=== PATIENT | male | born 1970 | race Caucasian/White ===

== ENCOUNTER 2019-12-07 08:10 | Day surgery (SDC) | payer OTHER, MEDICARE ==
[~2019-12-07] VITALS: Ht 177.8 cm; Wt 96.0 kg
[~2019-12-07 08:10] MED LIST: AMLO5 PO; ASPI325 PO; Aspir 8181 MG PO; CLOP75 PO; EZET10 PO; ISOD40ER PO; ISOMON30 PO; Isosorbide Mono30 MG PO; Lisinopril2.5 MG; METO25ER PO; NITR.4SL SL; Percocet 5-3251 EACH PO; ROSU5 PO; TRAM50 PO; Zithromax250 MG PO
[2019-12-07] MEDS ORDERED: METF500 PO (08:45)
[2019-12-07] MEDS ORDERED: REPATHA SY140 MG/1 M (08:46)
--- NOTE | 2019-12-07 12:55 | NUR ---
2 CC AIR REMOVED FROM LEFT WRIST TR BAND, PT C/O DISCOMFORT FROM PRESSURE. ARM BOARD REMAINS ON FOR SUPPORT. PT TOLERATING PO FOOD/FLUIDS WITH NO DIFFICULTIES. WILL CONTINUE TO MONITOR. VSS. AT BEDSIDE.
--- NOTE | 2019-12-07 13:45 | NUR ---
TR BAND DEFLATED, REMAINS ON, ARM BOARD ON FOR SUPPORT. SITE APPEARS SOFT NON TENDER WITH NO ACTIVE BLEEDING OR OOZING NOTED. PT C/O LEFT WRIST/FOREARM BEING "SORE" OFFERED REPOSITIONING FOR COMFORT. VSS. CALL LIGHT IN REACH. REMAINS AT BEDSIDE.
--- NOTE | 2019-12-07 15:06 | NUR ---
PT DRESSED AND AMB TO BTR WELL, TR BAND REMOVED, DRESSING/SPLINT PLACED L WRIST, IV DC'D INTACT, PT AMB OUT WITH DRIVING PT HOME
== END 2019-12-07 15:00 | disposition home or self-care (01) ==
LOC: MHTC 08:10
PROC: B2181ZZ Fluoroscopy of Left Internal Mammary Bypass Graft using Low Osmolar Contrast (ICD-10-PCS; principal; 2019-12-07)
PROC: 4A023N7 Measurement of Cardiac Sampling and Pressure, Left Heart, Percutaneous Approach (ICD-10-PCS; principal; 2019-12-07)
PROC: B2111ZZ Fluoroscopy of Multiple Coronary Arteries using Low Osmolar Contrast (ICD-10-PCS; principal; 2019-12-07)
DX: R07.89 Other chest pain (principal); R94.39 Abnormal result of other cardiovascular function study; I25.10 Atherosclerotic heart disease of native coronary artery without angina pectoris; I25.2 Old myocardial infarction; I10 Essential (primary) hypertension; E78.5 Hyperlipidemia, unspecified; Z95.1 Presence of aortocoronary bypass graft; Z79.82 Long term (current) use of aspirin; Z79.899 Other long term (current) drug therapy; Z79.02 Long term (current) use of antithrombotics/antiplatelets
CPT/HCPCS: 93459; 99152; 99153; C1769; C1894; J1644; J2250; J3010; J7030; Q9967

== ENCOUNTER 2020-03-31 06:34 | Emergency (ER) | payer OTHER, MEDICARE ==
[~2020-03-31] VITALS: Ht 180.3 cm; Wt 95.2 kg
[~2020-03-31 06:34] MED LIST changes: +METF500 PO; +REPATHA SY140 MG/1 M
[2020-03-31] MEDS ORDERED: MECL25 PO (10:17)
[2020-03-31] MEDS ORDERED: ONDA4ODT MM (10:17)
[2020-03-31 11:52] LABS: Alanine Aminotransfer (ALT/SGP 42 U/L (12-78); Albumin, Blood 3.6 g/dL (3.4-5.0); Albumin/Globulin Ratio 1.1 (0.8-1.8); Alk Phos 51 U/L (50-136); Anion Gap 5 mmol/L (6-16); Aspartate Aminotrans (AST/SGOT 20 U/L (12-37); Bilirubin, Total 0.3 mg/dL (0.1-1.0); Blood Urea Nitrogen 12 mg/dL (8-24); Bun/Creatinine Ratio 10.2 (12.0-20.0); CO2, Blood 25 mmol/L (21-32); Calcium, Blood 8.3 mg/dL (8.5-10.1); Chloride, Blood 113 mmol/L (98-108); Creatinine, Blood 1.18 mg/dL (0.60-1.20); Globulin, Blood 3.2 g/dL (2.2-4.0); Glomerular Filtration Rate >60 (60-); Glucose, Blood 97 mg/dL (70-99); Sodium, Blood 143 mmol/L (136-145); Total Protein, Blood 6.8 g/dL (6.4-8.2); Troponin I <0.015 ng/mL (0.000-0.040)
[2020-03-31 13:45] LABS: BASOPHILS ABSOLUTE AUTO 0.05 K/mm3 (0.00-0.23); BASOPHILS PERCENT AUTO 1 % (0-2); EOSINOPHILS ABSOLUTE AUTO 0.21 K/mm3 (0.00-0.68); EOSINOPHILS PERCENT AUTO 2 % (0-6); Hematocrit 49.1 % (37.0-53.0); Hemoglobin 16.7 g/dL (13.5-17.5); IMMATURE GRAN ABSOLUTE AUTO 0.04 K/mm3 (0.00-0.10); IMMATURE GRAN PERCENT AUTO 0 % (0-1); LYMPHOCYTES ABSOLUTE AUTO 2.58 K/mm3 (0.84-5.20); LYMPHOCYTES PERCENT AUTO 27 % (21-46); MONOCYTES ABSOLUTE AUTO 1.05 K/mm3 (0.16-1.47); MONOCYTES PERCENT AUTO 11 % (4-13); Mean Corpuscular HGB 31.4 pg (26.0-34.0); Mean Corpuscular Volume 92 fL (80-100); Mean Platelet Volume 9.3 fL (9.1-12.4); NEUTROPHILS ABSOLUTE AUTO 5.77 K/mm3 (1.96-9.15); NEUTROPHILS PERCENT AUTO 60 % (41-73); Platelet Count 259 K/mm3 (150-400); RDW Coefficient Variation 13.7 % (11.7-14.2); RDW Standard Deviation 46.4 fL (35.1-46.3); Red Blood Cell Count 5.32 M/mm3 (4.30-5.90)
== END 2020-03-31 11:10 | disposition home or self-care (01) ==
LOC: ER 06:34
PROVIDERS: Emergency Medicine
DX: H81.10 Benign paroxysmal vertigo, unspecified ear (principal); I25.2 Old myocardial infarction; I10 Essential (primary) hypertension; Z79.02 Long term (current) use of antithrombotics/antiplatelets; Z79.82 Long term (current) use of aspirin; Z79.84 Long term (current) use of oral hypoglycemic drugs; Z95.5 Presence of coronary angioplasty implant and graft; Z79.899 Other long term (current) drug therapy
CPT/HCPCS: 36415; 70496; 70498; 80053; 84484; 85025; 93005; 93010; 99285-25; Q9967

== ENCOUNTER → 2022-03-22 | Outpatient (CLI) | payer OTHER, MEDICARE ==
[~2022-03-22] MED LIST changes: +MECL25 PO; +ONDA4ODT MM
== END | disposition home or self-care (01) ==
LOC: LAB SHORT 05:30 → LAB 05:30
PROVIDERS: Family Medicine
DX: R19.7 Diarrhea, unspecified (principal)
CPT/HCPCS: 82653; 83993

== ENCOUNTER 2023-02-09 16:58 | Emergency (ER) | payer OTHER, MEDICARE ==
[~2023-02-09] VITALS: Ht 177.8 cm; Wt 104.3 kg
[2023-02-09 17:21] LABS: BASOPHILS ABSOLUTE AUTO 0.03 K/mm3 (0.00-0.23); BASOPHILS PERCENT AUTO 0 % (0-2); EOSINOPHILS PERCENT AUTO 1 % (0-6); Hematocrit 40.8 % (37.0-53.0); Hemoglobin 14.3 g/dL (13.5-17.5); IMMATURE GRAN ABSOLUTE AUTO 0.01 K/mm3 (0.00-0.10); IMMATURE GRAN PERCENT AUTO 0 % (0-1); LYMPHOCYTES ABSOLUTE AUTO 2.17 K/mm3 (0.84-5.20); LYMPHOCYTES PERCENT AUTO 24 % (21-46); MONOCYTES ABSOLUTE AUTO 1.03 K/mm3 (0.16-1.47); MONOCYTES PERCENT AUTO 11 % (4-13); Mean Corpuscular HGB 30.6 pg (26.0-34.0); Mean Corpuscular Volume 87 fL (80-100); Mean Platelet Volume 9.3 fL (9.1-12.4); NEUTROPHILS ABSOLUTE AUTO 5.71 K/mm3 (1.96-9.15); NEUTROPHILS PERCENT AUTO 63 % (41-73); Platelet Count 224 K/mm3 (150-400); RDW Standard Deviation 40.9 fL (35.1-46.3); Red Blood Cell Count 4.68 M/mm3 (4.30-5.90); White Blood Cell Count 9.05 K/mm3 (4.00-11.30)
[2023-02-09 17:39] LABS: Albumin, Blood 3.9 g/dL (3.4-5.0); Albumin/Globulin Ratio 1.3 (0.8-1.8); Bilirubin, Total 0.4 mg/dL (0.1-1.0); Bun/Creatinine Ratio 19.6 (12.0-20.0); Calcium, Blood 9.1 mg/dL (8.5-10.1); Creatinine, Blood 1.12 mg/dL (0.60-1.20); Potassium, Blood 3.7 mmol/L (3.5-5.5); Total Protein, Blood 6.9 g/dL (6.4-8.2)
[2023-02-09] MEDS ORDERED: AMLODIPINE BES2.5 MG PO (18:31)
[2023-02-09 20:00] VITALS: BP 128/64
== END 2023-02-09 20:31 | disposition home or self-care (01) ==
LOC: ER 16:58
PROVIDERS: Physician Assistant
DX: R00.2 Palpitations (principal); I25.2 Old myocardial infarction; I10 Essential (primary) hypertension; I25.10 Atherosclerotic heart disease of native coronary artery without angina pectoris; Z79.02 Long term (current) use of antithrombotics/antiplatelets; Z79.82 Long term (current) use of aspirin; Z79.899 Other long term (current) drug therapy
CPT/HCPCS: 80053; 83735; 84484; 85025; 93005; 93010; 99284-25; A9270; J7030